=== PATIENT | male | born 1970 | race Hispanic/Latino ===

== ENCOUNTER 2018-12-01 07:32 | Day surgery (SDC) | payer MEDICAID ==
[2018-11-30 14:54] VITALS: BMI 28.5
--- NOTE | 2018-12-01 10:06 | CP.SDSHP ---
Same Day Surgery H & P - History Proposed Procedure: EGD Pre-Op Diagnosis: heartburn - Previous Medical/Surgical History Cardiac: Hypertension Endocrine/Metabolic: Diabetes - Allergies Allergies: Allergies No Known Allergies Allergy (Verified 11/30/18 14:50) - Physical Exam General Appearance: NAD Vital Signs: Vital Signs 12/01/18 12/01/18 08:05 09:10 Temperature 98 F 97.5 F L Pulse Rate 74 66 Respiratory 16 16 Rate Blood Pressure 120/77 113/81 O2 Sat by Pulse 99 99 Oximetry Mental Status: Alert & Oriented x3 Neuro: WNL Heart: WNL Lungs: WNL GI: WNL - {Optional Preform as Required} Abdomen: WNL - Impression Pt. Evaluated Today:Candidate for Anesthesia & Procedure: Yes - Date & Time Date: 12/01/18 Time: 10:06 Short Stay Discharge - Short Stay Discharge Admitting Diagnosis/Reason for Visit: HEARTBURN Disposition: HOME/ ROUTINE
[2018-12-01] MEDS ORDERED: Propofol 10 mg/ml Inj (20 ML) ONE ×2 (10:12)
[2018-12-01 12:39] VITALS: BP 101/72; PULSE 75; RESP 14; TEMP 97.7; O2SAT 98
== END 2018-12-01 11:30 | disposition home or self-care (01) ==
LOC: C.ENDO 07:32
PROVIDERS: ATTEND Internal Medicine Gastroenterology
DX: R12 Heartburn (principal); K20.9 Esophagitis, unspecified; K29.70 Gastritis, unspecified, without bleeding; K29.80 Duodenitis without bleeding
CPT/HCPCS: 43239; 82948; 88305; 88312; 88313; 88342; J2001; J2704; J7040

== ENCOUNTER 2018-12-12 13:36 | Day surgery (SDC) | payer MEDICAID ==
[2018-12-06 08:34] VITALS: BMI 29.6
[2018-12-12] MEDS ORDERED: Propofol 10 mg/ml Inj (20 ML) ONE (19:16)
[2018-12-12] MEDS ORDERED: Lidocaine 2% Jelly (Uro-Jet) ONE (19:25)
[2018-12-12] MEDS ORDERED: Ciprofloxacin 400mg/200ml D5W 400 MG/200 ML BAG IVPB ONE (19:25)
[2018-12-12] MEDS ORDERED: Gentamicin 80 mg in 0.9% NS 160 MG/200 ML BAG IVPB ONE (19:25)
--- NOTE | 2018-12-12 19:34 | PCM.SURG1 ---
Surgeon's Initial Post Op Note - Surgeon's Notes Surgeon: Naga Claim Specialist: FAYE Type of Anesthesia: General LMA Anesthesia Administered By: STAFF Pre-Operative Diagnosis: bph LUTS Operative Findings: EVIDENCE OF PROSTATIS NO MORIN Post-Operative Diagnosis: cHRONIC PROSTATITIS Operation Performed: CYSTOSCOPY Specimen/Specimens Removed: NA Estimated Blood Loss: EBL {In ML}: 0 Blood Products Given: N/A Drains Used: No Drains Post-Op Condition: Good Date of Surgery/Procedure: 12/12/18 Time of Surgery/Procedure: 19:33
[2018-12-12] MEDS ORDERED: HYDROmorphone 0.5 mg/0.5 ml ISec IVP PRN (19:48)
[2018-12-12] MEDS ORDERED: HYDROmorphone 0.5 mg/0.5 ml ISec ONE (19:54)
[2018-12-12 20:34] VITALS: O2SAT 100
[2018-12-12 21:11] VITALS: BP 114/81; PULSE 72; RESP 10; TEMP 97.3
--- NOTE | 2018-12-13 06:31 | OP ---
PROCEDURE DATE: 12/12/2018 PREOPERATIVE DIAGNOSIS: Benign prostatic hypertrophy and lower urinary tract symptoms. POSTOPERATIVE DIAGNOSIS: Benign prostatic hypertrophy and chronic prostatitis with minimal outlet obstruction. PROCEDURE: Cystopanendoscopy. SURGEON: Kalen Valle MD DESCRIPTION OF PROCEDURE: Prior to procedure, a detailed informed consent was obtained from the patient. He is aware of the risks, complications, and limitations of cystoscopy. The patient agreed to the risks and signed the consent to proceed. He was brought into the room, and a time-out was taken according to the rules and regulations of [facility]. After receiving prophylactic antibiotics, the patient was cystoscoped with a #21 Storz panendoscope. The pendulous and membranous urethras were normal. The prostatic urethra showed minimal prostatic hypertrophy. There was no evidence of significant outlet obstruction. However, there was erythema of the prostatic fossa consistent with chronic prostatitis. The bladder was entered atraumatically. There was +2 trabeculation of bladder. No evidence to urothelial tumor or stone. Both ureteral orifices effluxed clear urine. Based on the above findings, the patient seems to be suffering from chronic prostatitis. We will place the patient on Flomax and Septra and follow up in our office in one month. Kalen Valle MD
== END 2018-12-12 21:30 | disposition home or self-care (01) ==
LOC: C.SDS 13:36
PROVIDERS: ATTEND Urology
DX: N40.1 Benign prostatic hyperplasia with lower urinary tract symptoms (principal)
CPT/HCPCS: 52000; 82948; J0744; J1170; J1580